=== PATIENT | female | born 1995 ===

== ENCOUNTER 2017-08-10 01:36 | Emergency (ER) | payer SELFPAY ==
[2017-08-10 01:53] VITALS: BP 126/76; PULSE 99; RESP 16; TEMP 98.3; O2SAT 98
--- NOTE | 2017-08-10 02:33 | ED PDOC ---
HPI: Back Time Seen by Provider: 08/10/17 01:55 Chief Complaint (Nursing): Lower Extremity Problem/Injury Chief Complaint (Provider): low back pain History Per: Patient History/Exam Limitations: no limitations Onset/Duration Of Symptoms: Mins Current Symptoms Are (Timing): Still Present Quality Of Discomfort: "Pain" Exacerbating Factor(s): Turning, Movement Additional History Per: Patient Additional Complaint(s): 21 y/o female brought in by EMS for eval of low back pain sustained from a fall prior to arrival. Patient states she was sitting on a gait outside and the gait fell, causing her to fall and land on her back. Patient notes low back pain, worse with movement, and abrasion to left elbow. Denies numbness/ weakness lower extremities, bowel/bladder incontinence. Past Medical History Reviewed: Historical Data, Nursing Documentation, Vital Signs Vital Signs: Last Vital Signs Temp 98.3 F 08/10/17 01:51 Pulse 99 H 08/10/17 01:51 Resp 16 08/10/17 01:51 BP 126/76 08/10/17 01:51 Pulse Ox 98 08/10/17 01:51 - Medical History PMH: Asthma - Surgical History Surgical History: No Surg Hx - Family History Family History: States: Unknown Family Hx - Immunization History Hx Tetanus Toxoid Vaccination: No Hx Influenza Vaccination: No Hx Pneumococcal Vaccination: No - Home Medications Home Medications: Ambulatory Orders Medication Instructions Recorded Acetaminophen [Tylenol] 650 mg PO TID PRN 7 Days 07/15/16 Cyclobenzaprine [Cyclobenzaprine 10 mg PO Q8 PRN #30 tab 03/28/17 HCl] Naproxen [Naprosyn] 500 mg PO BID PRN #30 tab 03/28/17 Cyclobenzaprine [Cyclobenzaprine 10 mg PO BID PRN #10 tab 08/10/17 HCl] Lidocaine 5% [Lidoderm] 1 patch TOP DAILY #5 patch 08/10/17 Naproxen [Naprosyn] 500 mg PO Q12 PRN #20 tablet 08/10/17 - Allergies Allergies/Adverse Reactions: Allergies Allergy/AdvReac Type Severity Reaction Status Date / Time No Known Allergies Allergy Verified 03/28/17 12:56 Review of Systems ROS Statement: Except As Marked, All Systems Reviewed And Found Negative Musculoskeletal: Positive for: Back Pain Physical Exam - Reviewed Nursing Documentation Reviewed: Yes Vital Signs Reviewed: Yes - Physical Exam Appears: Positive for: Well, Non-toxic, Uncomfortable (crying) Head Exam: Positive for: ATRAUMATIC, NORMAL INSPECTION, NORMOCEPHALIC Skin: Positive for: Normal Color Eye Exam: Positive for: Normal appearance ENT: Positive for: Normal ENT Inspection Cardiovascular/Chest: Positive for: Regular Rate, Rhythm Respiratory: Positive for: Normal Breath Sounds Gastrointestinal/Abdominal: Positive for: Normal Exam Back: Positive for: Vertebral Tenderness (diffuse lspine), Muscle Spasm (b/l lspine paraspinals). Negative for: L CVA Tenderness, R CVA Tenderness, Decreased ROM Extremity: Positive for: Normal ROM, Other (large abrasion noted proximal left forearm: FROM, no swelling/deformity/tenderness noted) Neurologic/Psych: Positive for: Alert, Oriented - ECG O2 Sat by Pulse Oximetry: 98 - Other Rad xray ls X-Ray: Viewed By Me X-Ray Interpretation: no acute findings - Progress ED Course And Treament: Toradol IM, flexeril PO, xray Abrasion cleaned with normal saline, bacitracin applied, bandaged Patient educated on findings, discharged with rx naproxen, flexeril, lidoderm. Advised follow up PMD 2-3 days. Advised neosporin to arm abrasion. Return to ED for worsening/concerning symptoms. Disposition - Clinical Impression Clinical Impression: Forearm abrasion, Low back pain Counseled Patient/Family Regarding: Studies Performed, Diagnosis, Need For Followup, Rx Given - Disposition Referrals: [facility] [Outside] Disposition: Routine/Home Disposition Time: 05:57 Condition: IMPROVED Additional Instructions: Follow up with primary doctor in 2-3 days. Take medication as directed. Apply neosporin to arm abrasion. Return to ED for worsening/concerning symptoms. Prescriptions: Cyclobenzaprine [Cyclobenzaprine HCl] 10 mg PO BID PRN #10 tab PRN Reason: Muscle Spasm Lidocaine 5% [Lidoderm] 1 patch TOP DAILY #5 patch Naproxen [Naprosyn] 500 mg PO Q12 PRN #20 tablet PRN Reason: Pain, Moderate (4-7) Instructions: Acute Low Back Pain (ED), Abrasion (ED) Forms: [facility] ED School/Work Excuse
--- NOTE | 2017-08-10 11:32 | RAD ---
PROCEDURE: Radiographs of the Lumbar Spine. HISTORY: fall, low back pain COMPARISON: Comparison [facility] radiographs lumbar spine 03/28/2017. FINDINGS: BONES: Normal alignment. No listhesis. No fracture. DISC SPACES: Unremarkable. OTHER FINDINGS: None. IMPRESSION: Unremarkable radiographs of the lumbar spine.
== END 2017-08-10 06:12 | disposition home or self-care (01) ==
LOC: H.ER 01:36
DX: S50.812A Abrasion of left forearm, initial encounter (principal); W18.09XA Striking against other object with subsequent fall, initial encounter; Y93.89 Activity, other specified; Y92.89 Other specified places as the place of occurrence of the external cause; M54.5 Low back pain
CPT/HCPCS: 72100; 81025; 96372; 99282; J1885